=== PATIENT | male | born 1990 | race Caucasian/White ===

== ENCOUNTER 2021-09-12 11:56 | Emergency (ER) | payer OTHER, SELFPAY ==
[2021-09-12 12:04] VITALS: BP 121/78; PULSE 78; TEMP 36.4; O2SAT 98; BMI 24.3
--- NOTE | 2021-09-12 12:12 | CRLHL7_ITS ---
For Patients: As a result of the Cures Act, medical imaging exams and procedure reports are released immediately into your electronic medical record. You may view this report before your referring provider. If you have questions, please contact your health care provider. INDICATION: Rib pain. COMPARISON: None. TECHNIQUE: PA chest and bilateral ribs, 6 images. FINDINGS: No focal consolidation, pleural effusion, or pneumothorax. Normal heart size and pulmonary vascularity. No displaced rib fracture identified. IMPRESSION: 1. No acute cardiopulmonary findings. 2. No displaced rib fracture identified. Dictated by Nisha Santa MD @ 09/12/2021 1:12:55 PM (Electronically Signed)
--- NOTE | 2021-09-12 13:17 | ED.GENADULT ---
HPI - General Adult General Chief complaint: Chest Pain Stated complaint: Chest pain,lifted heavy item, heard a pop Time Seen by Provider: 09/12/21 12:08 Source: patient Mode of arrival: ambulatory Limitations: no limitations History of Present Illness HPI narrative: [age] year male coming in today complaining of chest wall pain. States that he was lifting a very heavy box 2 days ago when he felt a pop on his anterior chest wall. Since then it has been quite sore. Taking a deep breath makes it feel worse. Sitting still makes it better. He denies any shortness of breath, fevers, chills. He is not nauseated has not vomited. He is not coughing. He denies direct trauma to the chest wall. He does not feel dizzy or lightheaded. He denies any smoking. Related Data Home Medications Medication Instructions Recorded Confirmed No Known Home Medications 09/12/21 09/12/21 Allergies Allergy/AdvReac Type Severity Reaction Status Date / Time No Known Drug Allergies Allergy Verified 09/12/21 12:07 Review of Systems Status of ROS: Reports: 10 or more systems reviewed and unremarkable except as noted in History and below [facility] Social History Smoking Status: Never smoker Do you use any of these nicotine containing products: None Second hand tobacco smoke exposure: No How often do you have a drink containing alcohol: never How often do you have six or more drinks on one occasion: Never AUDIT-C Alcohol total score: 0 Non-prescribed substance use: denies use Exam Narrative: Exam Narrative: Well-nourished well-developed patient in no acute distress. Alert and oriented. Answers questions appropriately. Mood and affect are appropriate. Thoughts are goal oriented and rational. No tangential or magical thinking noted. Patient speaks in full sentences without needing to catch their breath. HEENT: Normocephalic atraumatic. Pupils are equally round reactive to light. Extraocular muscles are intact. Conjunctivae are moist without any icterus noted. Neck is soft without any lymphadenopathy or thyromegaly. No masses are appreciated. Cardiovascular: Heart is regular rate and rhythm S1 and S2 are present without any murmurs. Lungs: Clear to auscultation bilaterally no wheezes rhonchi or rales are appreciated. Patient takes deep breaths with minimal discomfort. Chest wall appears normal, there is no bruising or ecchymosis noted. He has tenderness to palpation along the left border of the sternum. Abdomen: Soft and nontender nondistended with normal bowel sounds. Skin: Well perfused without any obvious rashes. Const: Vital Signs, click to edit/add: Vital Signs - 24 hr 09/12/21 12:04 Temperature 97.6 F Pulse Rate [Left P ulse Oximeter] 78 Blood Pressure [Ri ght Upper Arm] 121/78 Pulse Oximetry 98 Oxygen Delivery Me thod Room Air Course Course Hospital Course: Proceeded with rib views and a PA chest which was unremarkable. Vital Signs Vital signs: Initial Vital Signs Temperature 97.6 F 09/12/21 12:04 Temperature Source Temporal Artery Scan 09/12/21 12:04 Pulse Rate 78 09/12/21 12:04 Blood Pressure 121/78 09/12/21 12:04 Blood Pressure Mean 92 09/12/21 12:04 Blood Pressure Position Supine 09/12/21 12:04 Pulse Oximetry 98 09/12/21 12:04 Oxygen Delivery Method 09/12/21 12:04 Vital Signs Temperature 97.6 F 09/12/21 12:04 Pulse Rate 78 09/12/21 12:04 Blood Pressure 121/78 09/12/21 12:04 Pulse Oximetry 98 09/12/21 12:04 Oxygen Delivery Method 09/12/21 12:04 Temperature 97.6 F 09/12/21 12:04 Pulse Rate 78 09/12/21 12:04 Blood Pressure 121/78 09/12/21 12:04 Pulse Oximetry 98 09/12/21 12:04 Oxygen Delivery Method 09/12/21 12:04 Medical Decision Making [facility] Narrative Medical decision making narrative: 31-year-old male with anterior chest wall pain after lifting a heavy box. We discussed the possibility of costochondritis inflammation of the rib insertion into the sternum. We discussed the possibility of rib her sternal fracture however would be very low likelihood given the mode of injury. We discussed symptomatic treatment at this time including NSAIDs and heat. Patient was agreeable had no other questions. We also did discuss reasons to return to the ER including shortness of breath, fevers or worsening chest pain. Imaging Data Rib x-ray with PA chest: Attestation: I have reviewed the pertinent imaging results. My impression: No acute findings Radiologist's impression: FINDINGS: No focal consolidation, pleural effusion, or pneumothorax. Normal heart size and pulmonary vascularity. No displaced rib fracture identified. IMPRESSION: 1. No acute cardiopulmonary findings. 2. No displaced rib fracture identified. Discharge Plan Discharge Clinical Impression: Acute chest wall pain Patient Disposition: Home, Self-Care Condition: Stable Additional Instructions: Okay to take ibuprofen or Tylenol as needed for discomfort. Okay to use a heating pad to the anterior chest wall several times per day, do not apply heat directly to skin. Follow-up with your primary care provider in a week if you are not slowly improving. Prescriptions: No Action No Known Home Medications Follow Up/Referrals: Provider,Not a Local [Primary Care Provider] - Stand Alone Forms: [employer] Info Instructions
== END 2021-09-12 13:27 | disposition home or self-care (01) ==
PROVIDERS: Emergency Provider Family Medicine
DX: R07.89 Other chest pain (principal); X50.0XXA Overexertion from strenuous movement or load, initial encounter
CPT/HCPCS: 71111; 99283; 99284

== ENCOUNTER 2021-10-23 16:44 | Emergency (ER) | payer OTHER, SELFPAY ==
[2021-10-23 16:50] VITALS: BP 135/80; PULSE 74; TEMP 37.2; O2SAT 96; BMI 24.3
--- NOTE | 2021-10-23 17:03 | ED.GENADULT ---
HPI - General Adult General Chief complaint: Skin/Abscess/Foreign Body Stated complaint: Bumps on Arm Time Seen by Provider: 10/23/21 16:50 Source: patient Mode of arrival: ambulatory Limitations: no limitations History of Present Illness HPI narrative: [age] year male coming in today complaining of a rash that has been going on for about a month. The rash comes and goes different parts of the body but is generally present all the time. He denies any recent illnesses such as cough, chest pain, fevers or chills within the last month. No nausea or vomiting. No muscle aches. Denies any joint aches. He denies any sexual partners that are new, states that he has had 1 sexual partner in the last year. Denies having sex with men. States that the rash is not itchy. He denies any rectal symptoms such as drainage or pain. He denies the rash as being painful. He denies any recent malaise or respiratory symptoms. Denies any recent travel. Related Data Previous Rx's Medication Instructions Recorded sulfamethoxazole 800 1 tab PO BID 7 days #14 tabs 10/23/21 mg-trimethoprim 160 mg tablet (Bactrim DS) Allergies Allergy/AdvReac Type Severity Reaction Status Date / Time No Known Drug Allergies Allergy Verified 09/12/21 12:07 Review of Systems Status of ROS: Reports: 10 or more systems reviewed and unremarkable except as noted in History and below [facility] Social History Smoking Status: Never smoker Do you use any of these nicotine containing products: None Second hand tobacco smoke exposure: No How often do you have a drink containing alcohol: never How often do you have six or more drinks on one occasion: Never AUDIT-C Alcohol total score: 0 Non-prescribed substance use: denies use Exam Narrative: Exam Narrative: Well-nourished well-developed patient in no acute distress. Alert and oriented. Answers questions appropriately. Mood and affect are appropriate. Thoughts are goal oriented and rational. No tangential or magical thinking noted. Patient speaks in full sentences without needing to catch his breath. HEENT: Normocephalic atraumatic. Pupils are equally round reactive to light. Extraocular muscles are intact. Conjunctivae are moist without any icterus noted. Moist mucous membranes. Posterior pharynx is normal. Neck is soft without any lymphadenopathy or thyromegaly. No masses are appreciated. No lesions in the inside of the mouth. Skin: Well perfused. Patient has a pustular eruption involving the entire trunk arms and extremities. The pustules are quite small, only 2 or so mm in diameter. They are very superficial and easy to pop. Const: Vital Signs, click to edit/add: Vital Signs - 24 hr 10/23/21 16:50 Temperature 98.9 F Pulse Rate [Right Pulse Oximeter] 74 Blood Pressure [Le ft Upper Arm] 135/80 Pulse Oximetry 96 Oxygen Delivery Me thod Room Air Course Vital Signs Vital signs: Initial Vital Signs Temperature 98.9 F 10/23/21 16:50 Temperature Source Temporal Artery Scan 10/23/21 16:50 Pulse Rate 74 10/23/21 16:50 Blood Pressure 135/80 10/23/21 16:50 Blood Pressure Mean 98 10/23/21 16:50 Blood Pressure Position Sitting 10/23/21 16:50 Pulse Oximetry 96 10/23/21 16:50 Oxygen Delivery Method 10/23/21 16:50 Vital Signs Temperature 98.9 F 10/23/21 16:50 Pulse Rate 74 10/23/21 16:50 Blood Pressure 135/80 10/23/21 16:50 Pulse Oximetry 96 10/23/21 16:50 Oxygen Delivery Method 10/23/21 16:50 Temperature 98.9 F 10/23/21 16:50 Pulse Rate 74 10/23/21 16:50 Blood Pressure 135/80 10/23/21 16:50 Pulse Oximetry 96 10/23/21 16:50 Oxygen Delivery Method 10/23/21 16:50 Medical Decision Making [facility] Narrative Medical decision making narrative: 31-year-old male with a pustular rash for about a month without any associated symptoms. Patient concerned about the possibility of monkey pox however given that the pustules are so superficial and he had no other associated symptoms nor history of risky behavior, this would be very unlikely. I do think that this likely represents more of a bacterial folliculitis. At this time we will treat him with Bactrim for a week to see if this makes a difference. I then would like him to follow up with primary care provider. Patient was agreeable had no other questions. Discharge Plan Discharge Clinical Impression: Bacterial folliculitis, Rash Patient Disposition: Home, Self-Care Condition: Stable Additional Instructions: Take all antibiotics as prescribed. Avoid hot tubs until your rash is cleared. Follow-up with your primary care provider if you do not notice a difference in 1 week. Prescriptions: New sulfamethoxazole-trimethoprim [Bactrim DS] 800-160 mg tablet 1 tab PO BID 7 Days Qty: 14 0RF Follow Up/Referrals: Provider,Not a Local [Primary Care Provider] - Stand Alone Forms: [employer] Info Instructions
== END 2021-10-23 18:22 | disposition home or self-care (01) ==
LOC: ED 17:17
PROVIDERS: Emergency Provider Family Medicine
DX: L73.8 Other specified follicular disorders (principal)
CPT/HCPCS: 99283; 99284